=== PATIENT | female | born 1980 | race Two or more races ===

== ENCOUNTER 2021-03-08 15:37 | Emergency (ER) | payer SELFPAY ==
[~2021-03-08] VITALS: Ht 162.6 cm; Wt 80.0 kg
[2021-03-08 16:16] VITALS: BP 162/99
[2021-03-08 17:39] LABS: CLARITY,URINE CLEAR (Clear); COLOR,URINE YELLOW (Yellow); GLUCOSE, URINE >=1000 mg/dl (Neg); KETONES,URINE NEGATIVE (Neg); LEUKOCYTE ESTERASE ,URINE NEGATIVE (Neg); NITRITES, URINE NEGATIVE (Neg); OCCULT BLOOD,URINE SMALL (Neg); PROTEIN,URINE NEGATIVE (Neg); UA COLLECTION TYPE CLN CATCH MIDSTREAM; UROBILINOGEN,URINE 0.2 E.U/dL (0.2-1.0)
[2021-03-08 17:47] LABS: BACTERIA,URINE NONE SEEN /HPF (Neg); RBC,URINE 0-2 /HPF (0-2); SQUAMOUS EPITHELIAL CELL,UR FEW /LPF (FEW); WBC,URINE 0-4 /HPF (0-4)
== END 2021-03-08 21:31 | disposition left against medical advice (07) ==
LOC: ER 15:38
DX: Z02.89 Encounter for other administrative examinations (principal); N93.9 Abnormal uterine and vaginal bleeding, unspecified; R30.9 Painful micturition, unspecified; Z53.21 Procedure and treatment not carried out due to patient leaving prior to being seen by health care provider
CPT/HCPCS: 81001

== ENCOUNTER 2022-09-24 18:26 | Emergency (ER) | payer MEDICAID ==
[~2022-09-24] VITALS: Ht 162.6 cm; Wt 86.4 kg
[2022-09-24 18:47] VITALS: BP 119/81
[2022-09-24] MEDS ORDERED: PERM60CR4 TOP (18:48)
[2022-09-24] MEDS ORDERED: IVER3TAB2 PO (18:48)
== END 2022-09-24 18:59 | disposition home or self-care (01) ==
LOC: ER 18:26
DX: B86 Scabies (principal)
CPT/HCPCS: 99283